=== PATIENT | male | born 1985 | race Caucasian/White ===

== ENCOUNTER 2018-09-21 08:17 | Day surgery (SDC) | payer OTHER ==
[~2018-09-21] VITALS: Ht 177.8 cm; Wt 77.8 kg
[~2018-09-21 08:17] MED LIST: BUPIVACAINE/PF-EPI 0.5% 1:200K ONE
[2018-09-21] MEDS ORDERED: MIDAZOLAM 1 MG/ML, 2ML ONE (08:57)
[2018-09-21] MEDS ORDERED: FENTANYL PF 250 MCG/5ML ONE (08:58)
[2018-09-21] MEDS ORDERED: LACTATED RINGERS 1,000 ML IV SCH (09:00)
[2018-09-21] MEDS ORDERED: OxyconTIN ER 20 MG TAB.ER PO ONE (09:00)
[2018-09-21] MEDS ORDERED: ACETAMINOPHEN 500 MG TABLET PO ONE (09:00)
[2018-09-21] MEDS ORDERED: GABAPENTIN 300 MG CAPSULE PO ONE (09:00)
[2018-09-21] MEDS ORDERED: DIAZEPAM 5 MG TABLET PO ONE (09:00)
[2018-09-21] MEDS ORDERED: OMEP-110 PO (09:05)
[2018-09-21 09:08] VITALS: BP 110/71
[2018-09-21] MEDS ORDERED: ONDANSETRON 2MG/ML, 2ML ONE (09:37)
[2018-09-21] MEDS ORDERED: DEXAMETHASONE 4 MG/ML, 1ML ONE (09:37)
[2018-09-21] MEDS ORDERED: ROCURONIUM 10MG/ML,5ML ONE (09:37)
[2018-09-21] MEDS ORDERED: KETOROLAC 30 MG/1 ML ONE (09:37)
[2018-09-21] MEDS ORDERED: PROPOFOL 10 MG/ML, 20ML ONE (09:37)
[2018-09-21] MEDS ORDERED: LIDOCAINE 2% 100MG/5ML SYRINGE ONE (09:37)
[2018-09-21] MEDS ORDERED: CEFOTETAN 2 GM ONE (09:37)
[2018-09-21] MEDS ORDERED: MEPERIDINE/PF 25MG/0.5ML IVPush PRN (10:00)
[2018-09-21] MEDS ORDERED: OXYcodone 5 MG/5 ML ORAL.SOL UDC PO PRN ×2 (10:00→10:30)
[2018-09-21] MEDS ORDERED: ALBUTEROL/IPRATROPIUM 2.5MG/0.5MG, 3 ML NPPB PRN (10:00)
[2018-09-21] MEDS ORDERED: PROMETHAZINE 25 MG/ML, 1ML IV PRN (10:00)
[2018-09-21] MEDS ORDERED: MIDAZOLAM 1 MG/ML, 2ML IV PRN (10:00)
[2018-09-21] MEDS ORDERED: FENTANYL PF 100 MCG/2ML IV PRN (10:00)
[2018-09-21] MEDS ORDERED: hydrALAzine 20 MG/ML, 1ML IV PRN (10:00)
[2018-09-21] MEDS ORDERED: SCOPOLAMINE PATCH, 1.5MG PATCH.TD72 TD PRN (10:00)
[2018-09-21] MEDS ORDERED: ONDANSETRON 2MG/ML, 2ML IV PRN (10:00)
[2018-09-21] MEDS ORDERED: SUGAMMADEX 200 MG/2 ML IVPush ONE (10:10)
[2018-09-21] MEDS ORDERED: ONDANSETRON 2MG/ML, 2ML IVPush PRN (10:30)
[2018-09-21] MEDS ORDERED: HYDROmorphone 1 MG/ML, 1ML ONE (10:49)
[2018-09-21] MEDS: HYDROmorphone 2 MG/ML, 1ML IVPush PRN ×3 (10:52→11:19)
[2018-09-21] MEDS ORDERED: OXYcodone 5 MG/5 ML ORAL.SOL UDC ONE (11:16)
== END 2018-09-21 12:45 | disposition home or self-care (01) ==
LOC: OUT 08:17
PROVIDERS: ATTEND Surgery
DX: K81.1 Chronic cholecystitis (principal); Z72.89 Other problems related to lifestyle
CPT/HCPCS: 47562; 88304; J1100; J1170; J1885; J2250; J2405; J2704; J3010; J3490; J7120